=== PATIENT | female | born 1950 | race Caucasian/White ===

== ENCOUNTER 2017-09-14 11:56 | Emergency (ER) | payer MEDICARE, OTHER ==
[~2017-09-14] VITALS: Ht 160 cm; Wt 75.5 kg
[2017-09-14] MEDS ORDERED: normal saline 1000ML IV soln IVB ONE ×2 (12:20→13:50)
[2017-09-14] MEDS ORDERED: ondansetron/PF 4mg/2ml inj IV ONE (12:20)
[2017-09-14 12:39] LABS: BASOPHILS % (AUTO) 0 % (0-1); EOSINOPHILS # (AUTO) 1.1 X10'3 (0-0.9); EOSINOPHILS % (AUTO) 8.7 % (0-6); HEMATOCRIT 32.9 % (35.0-45.0); HEMOGLOBIN 11.4 g/dl (12.0-16.0); LYMPHOCYTES % (AUTO) 7.6 % (21-51); MEAN CORPUSCULAR HEMOGLOBIN 32.7 PG (27.0-31.0); MEAN CORPUSCULAR HGB CONC 34.9 % (33.0-36.5); MEAN CORPUSCULAR VOLUME 93.8 FL (78-98); MEAN PLATELET VOLUME 7.3 FL (7.4-10.4); MONOCYTES # (AUTO) 1.2 X10'3 (0-0.9); MONOCYTES % (AUTO) 9.4 % (2-12); NEUTROPHILS # (AUTO) 9.7 X10'3 (1.8-7.7); NEUTROPHILS % (AUTO) 74.3 % (42-75); PLATELET COUNT 380 X10'3 (140-440); RED CELL DISTRIBUTION WIDTH 13.3 % (11.5-14.5)
[2017-09-14 12:57] LABS: ALANINE AMINOTRANSFERASE 35 U/L (12-78); ALBUMIN 2.9 G/DL (3.4-5.0); ALBUMIN/GLOBULIN RATIO 0.7 (1.1-1.5); ALKALINE PHOSPHATASE 108 IU/L (46-116); ANION GAP 11 (8-16); ASPARTATE AMINO TRANSFERASE 13 U/L (10-37); BILIRUBIN,TOTAL 0.3 MG/DL (0.1-1.0); BLOOD UREA NITROGEN 25 MG/DL (7-18); BUN/CREATININE RATIO 20.2 (6.6-38.0); CHLORIDE 99 MMOL/L (99-107); CREATININE 1.24 MG/DL (0.40-0.90); GLUCOSE 113 MG/DL (70-104); POTASSIUM 3.5 MMOL/L (3.5-5.1); SODIUM 136 MMOL/L (135-145); TOTAL CARBON DIOXIDE 26.3 MMOL/L (24-32); TOTAL PROTEIN 7.1 G/DL (6.4-8.2); eGFR 43 ML/MIN
[2017-09-14 13:06] LABS: LIPASE 2925 U/L (73-393)
[2017-09-14 14:15] LABS: CLARITY,URINE Cloudy (Clear); COLOR,URINE Yellow (Yellow); GLUCOSE, URINE Negative (Neg); KETONES,URINE Negative (Neg); LEUKOCYTE ESTERASE ,URINE Moderate (Neg); NITRITES, URINE Negative (Neg); OCCULT BLOOD,URINE Negative (Neg); PH,URINE 5.5 (4.8-8.0); PROTEIN,URINE Trace mg/dl (Neg); UROBILINOGEN,URINE 0.2 E.U/dL (0.2-1.0)
[2017-09-14 14:17] LABS: UA COLLECTION TYPE CLN CATCH MIDSTREAM
[2017-09-14 14:49] LABS: HYALINE CASTS 0-3 /LPF (NEGATIVE); MUCUS STRANDS FEW /LPF (Neg); SQUAMOUS EPITHELIAL CELL,UR MANY /LPF (FEW)
[2017-09-14 14:50] LABS: BACTERIA,URINE 1+ /HPF (Neg)
[2017-09-14 14:52] LABS: RBC,URINE 0-2 /HPF (0-2); TRICHOMONAS,URINE MOD /HPF (NEGATIVE); WBC,URINE 20-30 /HPF (0-4)
[2017-09-14 14:53] LABS: WBC CLUMPS,URINE FEW /HPF (NEGATIVE)
[2017-09-14 15:49] VITALS: BP 92/57
== END 2017-09-14 15:51 | disposition home or self-care (01) ==
LOC: ER 11:57
DX: S62.301A Unspecified fracture of second metacarpal bone, left hand, initial encounter for closed fracture (principal); R91.8 Other nonspecific abnormal finding of lung field; K85.90 Acute pancreatitis without necrosis or infection, unspecified; Z79.899 Other long term (current) drug therapy; W19.XXXA Unspecified fall, initial encounter; Y93.89 Activity, other specified; Y92.89 Other specified places as the place of occurrence of the external cause; Y99.8 Other external cause status
CPT/HCPCS: 29125; 36415; 71045; 73130; 74176; 80053; 81001; 83690; 84443; 84484; 85025; 93005; 96374; 96375; 99285; J2405; J7030

== ENCOUNTER 2017-09-19 08:06 | Emergency (ER) | payer MEDICARE, OTHER ==
[~2017-09-19] VITALS: Ht 160 cm; Wt 81.0 kg
[2017-09-19 08:16] VITALS: BP 130/76
[2017-09-19] MEDS ORDERED: DOXY-1 PO (08:23)
[2017-09-19] MEDS ORDERED: METH4TAB81 PO (08:23)
[2017-09-19] MEDS ORDERED: BUDE10.2 INH (08:23)
[2017-09-19] MEDS ORDERED: ALBU8.5H8 IH (08:23)
[2017-09-19] MEDS ORDERED: ipratropium/albuterol 3ml nebule NEB ONE (08:25)
[2017-09-19] MEDS ORDERED: methylPREDNISolone sod succ 125mg/2ml vial IM ONE (08:25)
[2017-09-19] MEDS ORDERED: HYDROcodone & chlorphen. 10-8mg/5ml oral susp. PO STA (08:58)
== END 2017-09-19 09:38 | disposition home or self-care (01) ==
LOC: ER 08:06
DX: J44.1 Chronic obstructive pulmonary disease with (acute) exacerbation (principal); Z79.899 Other long term (current) drug therapy
CPT/HCPCS: 94640; 94760; 96372; 99284; J2930